=== PATIENT | female | born 1955 | race Caucasian/White ===

== ENCOUNTER → 2016-12-07 | Outpatient (CLI) | payer MEDICARE ==
[~2016-12-07] MED LIST: ABILIFY5 MG PO; BENTYL20 MG PO; CALCIUM CARBON600 MG PO; EFFEXOR XR150 MG PO; EFFEXOR XR75 MG PO; FISH OIL1000 MG PO; LASIX20 MG PO; POTASSIUM GLUC500 MG PO; TENORMIN50 MG PO; TYLENOL EXTRA500 MG PO; ZANTAC (NON-FO150 MG PO
== END | disposition disaster alternative care site (69) ==
LOC: GBCOE 10:30
DX: N62 Hypertrophy of breast (principal); N63 Unspecified lump in breast; N64.89 Other specified disorders of breast; R92.2 Inconclusive mammogram
CPT/HCPCS: G0204; G0279

== ENCOUNTER → 2016-12-15 | Outpatient (CLI) | payer MEDICARE | LOC: LKCL 17:28 | DX: C50.912 Malignant neoplasm of unspecified site of left female breast (principal); Z17.0 Estrogen receptor positive status [ER+] ==